=== PATIENT | female | born 1995 | race Caucasian/White ===

== ENCOUNTER 2022-11-02 18:51 | Emergency (ER) | payer SELFPAY ==
[~2022-11-02] VITALS: Ht 157.5 cm; Wt 79.4 kg
[2022-11-02] MEDS ORDERED: MAGNESIUM SULFATE 2GM/50ML 50 ML IV ONE ×3 (19:00→19:15)
[2022-11-02] MEDS ORDERED: SODIUM CHLORIDE 0.9% 1000ML 1,000 ML IV SCH (19:00)
[2022-11-02 19:04] VITALS: PULSE 120; RESP 22; O2SAT 98
[2022-11-02] MEDS ORDERED: ALBUTEROL/IPRATROPIUM 3 ML NEB NEB STA ×2 (19:04→20:07)
[2022-11-02] MEDS ORDERED: SODIUM CHLORIDE 0.9% 1000ML 1,000 ML ONE (19:10)
[2022-11-02 19:37] LABS: BASOPHILS # (AUTO) 0.1 (0.0-0.1); BASOPHILS % 0.5 % (0.0-1.0); EOSINOPHILS % 7.5 % (0.0-6.0); HEMATOCRIT 38.9 % (34.2-44.1); HEMOGLOBIN 12.8 g/dL (12.0-16.0); LYMPHOCYTES # (AUTO) 2.2 (1.0-3.2); LYMPHOCYTES % 17.6 % (18.0-39.1); MEAN CORPUSCULAR HEMOGLOBIN 27.4 pg (28-32); MEAN CORPUSCULAR HGB CONC 32.9 g/dL (31-35); MEAN CORPUSCULAR VOLUME 83.3 fL (81-99); MONOCYTES # (AUTO) 0.7 (0.2-0.8); MONOCYTES % 5.7 % (4.4-11.3); NEUTROPHILS # (AUTO) 8.7 (2.1-6.9); NEUTROPHILS % 68.5 % (38.7-80.0); PLATELET COUNT 336 x10e3/uL (140-360); RED BLOOD COUNT 4.67 x10e6/uL (3.6-5.1); RED CELL DISTRIBUTION WIDTH 12.7 % (11.7-14.4)
[2022-11-02 19:51] LABS: ALBUMIN 3.7 g/dL (3.5-5.0); ALBUMIN/GLOBULIN RATIO 0.9 (0.8-2.0); ANION GAP 13.7 mmol/L (8-16); CALCIUM 9.2 mg/dL (8.4-10.2); CREATININE, SERUM 0.75 mg/dL (0.57-1.11); POTASSIUM 3.7 mmol/L (3.5-5.1)
[2022-11-02] MEDS ORDERED: ALBUTEROL/IPRATROPIUM 3 ML NEB ONE (20:12)
[2022-11-02 20:15] VITALS: PULSE 121; RESP 20; O2SAT 100
[2022-11-02] MEDS ORDERED: PREDNISONE20 MG PO (21:06)
[2022-11-02] MEDS ORDERED: AZITHROMYCIN250 MG PO (21:06)
[2022-11-02] MEDS ORDERED: VENTOLIN HFA18 GM INH (21:06)
[2022-11-02 21:18] VITALS: BP 123/80; PULSE 115; RESP 20; TEMP 98.7; O2SAT 100
== END 2022-11-02 21:17 | disposition home or self-care (01) ==
LOC: ER 19:00
DX: J45.909 Unspecified asthma, uncomplicated (principal); R06.02 Shortness of breath
CPT/HCPCS: 36415; 71045; 80053; 81025; 85025; 87400; 94640 ×2; 94799; 99284; J3475; J7030; U0002